=== PATIENT | male | born 1990 | race African-American/Black ===

== ENCOUNTER 2018-10-21 11:21 | Emergency (ER) | payer OTHER ==
[~2018-10-21] VITALS: Ht 177.8 cm; Wt 59.1 kg
[2018-10-21 11:32] VITALS: BP 103/72; PULSE 78; RESP 18; Ht 177.8 cm; Wt 59.1 kg
[2018-10-21] MEDS ORDERED: ASPIRIN 81 MG TAB PO STA (11:33)
[2018-10-21] MEDS ORDERED: ASPIRIN 81 MG TAB ONE (11:35)
--- NOTE | 2018-10-21 11:44 | ERD ---
ER Documentation Chief Complaint Chief Complaint BIBA FOR STEMI HPI This is a 28-year-old male with a history of schizophrenia. The patient indicates that several weeks ago he had an outpatient EKG performed with some abnormal findings. The patient went to an outpatient clinic today as he was instructed for follow-up examination. The clinic had performed an EKG which was concerning for an ST segment elevated myocardial infarction. The patient indicates that over the past several weeks he has been having mild chest pain. He denies any shortness of breath. He states that he was told the abnormal findings on the EKG several weeks ago could be a result of new medications that he had been taking for schizophrenia. He denies any illicit drug use. He denies any chest pressure at this time that radiates to the neck arm back or jaw ROS All systems reviewed and are negative except as per history of present illness. Allergies Allergies: Coded Allergies: No Known Allergy (Unverified , 10/21/18) PMhx/Soc History of Surgery: No Anesthesia Reaction: No Hx Cardiac Disorders: Yes (dx w/ tachycardia x1week ago started on propranolol/inderal) Hx Psychiatric Problems: Yes (schizophrenia ) Hx Alcohol Use: No Hx Substance Use: No Hx Tobacco Use: Yes (3/4 pack/day) Smoking Status: Current every day smoker Physical Exam Vitals Vital Signs Date Temp Pulse Resp B/P (MAP) Pulse Ox O2 O2 Flow FiO2 Time Delivery Rate 10/21/18 98.2 78 18 103/72 100 11:32 (82) Physical Exam Constitutional:Well-developed. Well-nourished. HEENT:Normocephalic. Atraumatic.Pupils were equal round reactive to light. Moist mucous membranes.No tonsillar exudates. Neck: No nuchal rigidity. No lymphadenopathy. No posterior cervical spine tenderness or step-offs. Respiratory: Not using accessory muscles of respiration.Lungs were clear to auscultation bilaterally. No rhonchi. No rales. No wheezing. Cardiovascular: Regular rate regular rhythm.No murmurs. No rubs were appreciated.S1, S2 normal. Distal pulses are palpable 2+ bilaterally. GI: Abdomen was soft. Nontender. Non Distended. No pulsatile abdominal masses or bruits. No rebound. No guarding. Bowel sounds were present and normal. Muscle skeletal: Full range of motion of both the upper and lower extremities bilaterally.Normal muscle tone.No assymetrical calf tenderness or swelling. Skin: No petechia, no purpura. No lesions on the palms or the soles of the feet. No maculopapular rash. NEURO: Patient was alert, awake, orientated x3.No facial droop. Gait observed and normal with no ataxia.Speech had regular rate and rhythm. No focal neurological deficits. Results 24 hrs Current Medications Medications Dose Sig/Mann Start Time Status Last (Trade) Ordered Route PRN Stop Time Admin Dose Reason Admin Aspirin 162 mg ONCE STAT 10/21/18 DC (Aspirin) PO 11:33 10/21/18 11:34 Procedures/MDM This is a 28-year-old male who presented to the emergency department for abnormal EKG. The patient was chest pain-free at this time. He was brought in by EMS. An EKG in the field was taken at 11:06 PM. It indicated that this meets ST segment elevation myocardial criteria. However there appeared to be left ventricular hypertrophy. The heart rate was 89. When the patient arrived to the hospital he immediately had an EKG performed. 12 Lead EKG tracing ordered and reviewed by myself showed: Normal sinus rhythm of 82 bpm and no arrhythmia. MT interval normal. QRS duration normal. ST segment elevation in the inferior leads and lateral leads V4, V5, V6. No ST segment depression. No changes consistent with acute ischemia. The patient was chest pain-free. However due to the changes on the EKG this was concerning for an ST segment myocardial infarction. Code STEMI was called at 1120 when the patient arrived in the EKG had been performed. However subcutaneously another code STEMI was also present in the emergency department. Therefore given that the previous patient would be going to undergo PCI this patient was transferred for higher level of care to [facility]. I spoke with the attending physician Dr. Fine who currently stated he will accept the patient. Ancillary laboratory work had been obtained. Chest radiograph was also obtained and there was no infiltrates Pneumovax or pleural effusions and no widened mediastinum reviewed by myself. The patient received aspirin. Nitroglycerin was not given as the patient was chest pain-free at this time and there was ST segment elevation was seen in the inferior leads however there is no precervical changes. The patient was hemodynamically stable. Critical Care: Time: 45 minutes Treatments/Evaluations: Close monitoring and treatment of unstable vital signs, cardiorespiratory, and neurologic status, while maintaining tight balance of fluid, respiratory, and cardiac interventions. Time does not include performing any of the above billable procedures. Departure Diagnosis: Primary Impression: ST elevation myocardial infarction (STEMI) Involved coronary artery: unspecified coronary artery Qualified Codes: I21.3 - ST elevation (STEMI) myocardial infarction of unspecified site Condition: Serious MOHIT URIARTE MD Oct 21, 2018 11:44
== END 2018-10-21 15:01 | disposition short-term general hospital (02) ==
LOC: E/R 11:21
DX: I21.3 ST elevation (STEMI) myocardial infarction of unspecified site (principal); F17.210 Nicotine dependence, cigarettes, uncomplicated; R07.9 Chest pain, unspecified
CPT/HCPCS: 71045; 80053; 82550; 82553; 83880; 84484; 85025; 85610; 85730; 93005; Z7502; Z7610